=== PATIENT | male | born 1940 | race Caucasian/White ===

== ENCOUNTER 2017-01-09 05:30 | Emergency (ER) | payer MEDICARE, OTHER, BC ==
[2017-01-09 05:52] VITALS: BP 157/86
[2017-01-09] MEDS ORDERED: Ketorolac 60 MG/2 ML SDV IM ONE (06:34)
--- NOTE | 2017-01-09 06:36 | EDM.PDOC ---
ED HPI GENERAL MEDICAL PROBLEM - General Chief Complaint: Back Pain or Injury Stated Complaint: BACK PAIN Time Seen by Provider: 01/09/17 06:35 Source of Information: Reports: Patient History Limitations: Reports: No Limitations - History of Present Illness INITIAL COMMENTS - FREE TEXT/NARRATIVE: pt arrived with pain on the rt side of his chest. He had the hemlich maneuver done on him on Tuesday because he was choking. Onset: Gradual Duration: Day(s): Location: Reports: Chest Associated Symptoms: Reports: Chest Pain Treatments PUBLIC RELATIONS INTERN: Reports: NSAIDS right rib/back pain Pain Score (Numeric/FACES): 9 - Related Data Allergies Allergy/AdvReac Type Severity Reaction Status Date / Time No Known Allergies Allergy Verified 01/09/17 06:52 Past Medical History HEENT History: Reports: Hard of Hearing, Impaired Vision, Other (See Below) Other HEENT History: bilateral hearing aids Cardiovascular History: Reports: None Respiratory History: Reports: None Gastrointestinal History: Reports: None Genitourinary History: Reports: None Musculoskeletal History: Reports: Arthritis Neurological History: Reports: TIA Psychiatric History: Reports: Other (See Below) Other Psychiatric History: clostrophobia Endocrine/Metabolic History: Reports: None Hematologic History: Reports: None Immunologic History: Reports: None Oncologic (Cancer) History: Reports: Basal Cell Carcinoma Dermatologic History: Reports: Other (See Below) Other Dermatologic History: basal cell - Infectious Disease History Infectious Disease History: Reports: Measles - Past Surgical History HEENT Surgical History: Reports: Cataract Surgery Cardiovascular Surgical History: Reports: None Respiratory Surgical History: Reports: None GI Surgical History: Reports: None Endocrine Surgical History: Reports: None Neurological Surgical History: Reports: None Musculoskeletal Surgical History: Reports: Arthroscopic Knee, Carpal Tunnel, Hip Replacement, Shoulder Surgery, Other (See Below) Other Musculoskeletal Surgeries/Procedures:: right hip replacement. right knee arthroscopy. right shoulder scope. right rotator cuff Dermatological Surgical History: Reports: Skin Biopsy Social & Family History - Tobacco Use Smoking Status *Q: Never Smoker - Caffeine Use Caffeine Use: Reports: Coffee, Soda - Recreational Drug Use Recreational Drug Use: No ED ROS GENERAL - Review of Systems Review Of Systems: See Below Constitutional: Reports: No Symptoms HEENT: Reports: No Symptoms Respiratory: Reports: Other (pain the rt rib cage with movement and deep breathing) Endocrine: Reports: No Symptoms GI/Abdominal: Reports: No Symptoms Musculoskeletal: Reports: No Symptoms Skin: Reports: No Symptoms ED EXAM,LOWER BACK PAIN/INJURY - Physical Exam Exam: See Below Text/Narrative:: Pt is havin rib pin on the rt . Exam Limited By: No Limitations General Appearance: Alert, Anxious, Moderate Distress Ears: Normal TMs Nose: Normal Inspection Throat/Mouth: Normal Inspection Head: Atraumatic Neck: Normal Inspection Respiratory/Chest: Other (pain on the rt side with deep breathing) Cardiovascular: Regular Rate, Rhythm GI/Abdominal: Soft, Non-Tender (Male) Exam: Deferred Rectal (Males) Exam: Deferred Back Exam: Normal Inspection Neurological: Alert, Oriented x 3 Psychiatric: Depressed Mood Course - Vital Signs Last Recorded V/S: Last Vital Signs Temp 35.5 C 01/09/17 05:49 Pulse 79 01/09/17 05:49 Resp 18 01/09/17 05:49 BP 157/86 H 01/09/17 05:49 Pulse Ox 97 01/09/17 05:49 - Orders/Labs/Meds Orders: Active Orders 24 hr Category Date Time Status Ribs 2V w Chest Rt [CR] Stat Exams 01/09/17 06:32 Taken Meds: Medications Discontinued Medications Generic Name Dose Route Start Last Admin Trade Name Freq PRN Reason Stop Dose Admin Ketorolac Tromethamine 60 mg 01/09/17 06:34 01/09/17 06:52 Toradol IM 01/09/17 06:35 60 mg ONETIME ONE Administration - Re-Assessments/Exams Free Text/Narrative Re-Assessment/Exam: 01/09/17 06:53 07:04 Departure - Departure Time of Disposition: 06:54 Disposition: Home, Self-Care 01 Condition: Fair Clinical Impression: Rib contusion - Discharge Information Referrals: PCP,None [Primary Care Provider] - Forms: ED Department Discharge Care Plan Goals: encourage dep breathing. flexeril 10 mg at hs. motrin 600mg tid with food, norco 5/325 q6h prn for pain - My Orders Last 24 Hours: My Active Orders 01/09/17 06:32 Ribs 2V w Chest Rt [CR] Stat - Assessment/Plan Last 24 Hours: My Active Orders 01/09/17 06:32 Ribs 2V w Chest Rt [CR] Stat
--- NOTE | 2017-01-10 09:34 | CR ---
Heart size within normal limits. No focal consolidation. No definitive displaced right rib fracture. No pneumothorax.
== END 2017-01-09 07:27 | disposition home or self-care (01) ==
LOC: JP.ED 05:30
DX: S20.219A Contusion of unspecified front wall of thorax, initial encounter (principal); Z86.73 Personal history of transient ischemic attack (TIA), and cerebral infarction without residual deficits; Z85.828 Personal history of other malignant neoplasm of skin; Z98.49 Cataract extraction status, unspecified eye; Z96.641 Presence of right artificial hip joint; Z96.651 Presence of right artificial knee joint; Z98.890 Other specified postprocedural states; X58.XXXA Exposure to other specified factors, initial encounter
CPT/HCPCS: 71101; 96372; 99284; J1885; 99283